=== PATIENT | male | born 1970 | race Caucasian/White ===

== ENCOUNTER 2018-07-26 01:44 | Emergency (ER) | payer OTHER ==
[~2018-07-26] VITALS: Ht 177.8 cm; Wt 102.1 kg
[2018-07-26] MEDS ORDERED: MELO15TA23 PO (02:03)
[2018-07-26] MEDS ORDERED: META-21 PO (02:03)
[2018-07-26] MEDS ORDERED: PRED50TA PO (02:40)
--- NOTE | 2018-07-26 02:48 | PHYS DOC ---
Past Medical History Past Medical History: Other Additional Past Medical Histor: Sciatica Additional Past Surgical Histo: Hernia, Left hand surgery, finger amputation Alcohol Use: Rarely Drug Use: None Adult General Chief Complaint Chief Complaint: BACK PAIN OR INJURY HPI HPI Patient is a 48 year old female who is presenting with back pain right lower back he felt something pull as he was taking out the trash on Monday pain is mostly in the right lower back and possibly in the right buttock no bowel or bladder incontinence. No numbness or tingling is taking muscle relaxant prescribed by his doctor to help a little bit is here for more pain relief. Review of Systems Review of Systems Negative for bowel bladder incontinence negative for fever. Current Medications Current Medications Current Medications Medications (Trade) Dose Ordered Sig/Pricilla Start Time Stop Time Status Last Admin Dose Admin Ketorolac Tromethamine (Toradol 30mg Vial) 30 mg 1X ONCE 07/26/18 02:45 07/26/18 02:46 UNV Allergies Allergies Allergies Coded Allergies Type Severity Reaction Last Updated Verified No Known Drug Allergies 07/26/18 No Physical Exam Physical Exam Constitutional: Well developed, well nourished, no acute distress, non-toxic appearance. [] HENT: Normocephalic, atraumatic, bilateral external ears normal, oropharynx moist, no oral exudates, nose normal. [] Eyes: PERRLA, EOMI, conjunctiva normal, no discharge. [] Neck: Normal range of motion, no tenderness, supple, no stridor. [] Pulmonary: Normal respiratory effort no increased work of breathing no obvious chest wall trauma Abdomen: Bowel sounds normal, soft, no tenderness, no masses, no pulsatile masses. [] Skin: Warm, dry, no erythema, no rash. [] Back: right paraspnous Extremities: No tenderness, no cyanosis, no clubbing, ROM intact, no edema. [] Neurologic: Alert and oriented X 3, normal motor function, normal sensory function, no focal deficits noted. [] Psychologic: Affect normal, judgement normal, mood normal. [] Current Patient Data Vital Signs Vital Signs Date Time Temp Pulse Resp B/P (MAP) Pulse Ox O2 Delivery O2 Flow Rate FiO2 07/26/18 01:45 98.0 97 18 127/63 (84) 98 Room Air 98.0 EKG EKG [] Radiology/Procedures Radiology/Procedures [] Course & Med Decision Making Course & Med Decision Making Pertinent Labs and Imaging studies reviewed. (See chart for details) Low back pain reducible examination no neurologic abnormalities probably muscle strain or herniated disc patient is given prednisone a dose of Toradol in the emergency room [] Dragon Disclaimer Dragon Disclaimer This electronic medical record was generated, in whole or in part, using a voice recognition dictation system. Departure Departure Impression: Primary Impression: Back pain Disposition: HOME, SELF-CARE Condition: STABLE Patient Instructions: Back Pain, Adult, [id number] Scripts Prednisone (PREDNISONE) 50 Mg Tablet 1 TAB PO DAILY, #5 TAB Prov: CARMEN BROWN MD 07/26/18 CARMEN BROWN MD Jul 26, 2018 02:48
[2018-07-26] MEDS ORDERED: KETOROLAC 30 MG/ML VIAL. IM ONE (03:00)
[2018-07-26 03:07] VITALS: BP 126/65
== END 2018-07-26 03:07 | disposition home or self-care (01) ==
LOC: ER 01:44
DX: M54.5 Low back pain (principal); Z98.890 Other specified postprocedural states
CPT/HCPCS: 96372; 99283; J1885